=== PATIENT | male | born 1975 | race African-American/Black ===

== ENCOUNTER 2019-10-17 10:09 | Day surgery (SDC) | payer OTHER ==
[~2019-10-17] VITALS: Ht 185.4 cm; Wt 109.1 kg
--- NOTE | ~2019-10-17 | HP ---
PATIENT: ROSALINA SANDOVAL MEDICAL RECORD: [id number] ACCOUNT: [id number] LOCATION:BI : 71 ADMISSION DATE: 10/17/19 PCP: CORNELIO CHEEK MD HISTORY AND PHYSICAL EXAMINATION PRINCIPAL DIAGNOSIS: Guaiac positive stools. HISTORY OF PRESENT ILLNESS: The patient has had guaiac positive stools. I performed a colonoscopy on him in the past, which did not reveal a source of bleeding. He is to undergo an EGD today. He does have some diffuse upper abdominal pain, which radiates around to the right back. He is on omeprazole. He states that he has daily reflux. PAST MEDICAL AND SURGICAL HISTORY: He had some quarters removed from the stomach as a child. HOME MEDICINE: Omeprazole. ALLERGIES: No known drug allergies. REVIEW OF SYSTEMS: Negative for coronary artery disease, hypertension. Negative for CVA or seizures. PHYSICAL EXAMINATION: GENERAL: The patient does not appear acutely ill. He does not appear chronically ill. VITAL SIGNS: Reviewed. EARS: External ears appear normal. EYES: Extraocular movements are intact. NECK: Trachea is midline. CHEST: No intercostal retractions. PULMONARY: Nonlabored, no stridor. IMPRESSION: Heme-positive stools in the face of a negative colonoscopy. PLAN: Will be EGD. TRANSINT:[id number] Voice Confirmation ID: [id number] DOCUMENT ID: [id number] cc: JHONATAN Andrew MD CC: [id number] DICTATION DATE: 10/17/19 1121 TELEPHONE SERVICE REPRESENTATIVE: 10/17/19 [id number] [place] [address]
--- NOTE | ~2019-10-17 | OP ---
PATIENT NAME: ROSALINA SANDOVAL MEDICAL RECORD: [id number] :71 LOCATION:[facility] ADMISSION DATE: SURGEON: NATHAN STAHL MD DATE OF OPERATION: 10/17/2019 PREOPERATIVE DIAGNOSIS: Heme-positive stools. POSTOPERATIVE DIAGNOSES: Heme-positive stools, sliding hiatal hernia, also no upper tract source of bleeding. PROCEDURE: Esophagogastroduodenoscopy with antral biopsy. SURGEON: Nathan Stahl MD LABORATORY SAMPLER: None. BLOOD LOSS: Minimal. ANESTHESIA: IV sedation. COMPLICATIONS: None. The risks, possible complications and alternatives to the procedure were explained to the patient. He elects to proceed. ENDOSCOPIC COURSE: The patient was conveyed to the endoscopy suite electively on 10/17/2019. IV sedation was induced by the anesthesia staff. A bite block was inserted. A gastroscope was inserted into the mouth. It was advanced easily into the hypopharynx. The esophagus was easily intubated as were the stomach and duodenum. Upon withdrawal, retroflexed and angulus views were obtained. Antral biopsies were obtained to rule out H. pylori. I carefully inspected the esophagus, the stomach, and the duodenum. I noted no evidence of inflammation. The endoscope was then withdrawn under direct vision. The patient has been on a proton pump inhibitor. It is a possibility that the patient did have an upper tract source of bleeding such as peptic ulcer disease, gastritis or duodenitis and that this is improved on the omeprazole. If a repeat rectal exam reveals guaiac positive stools again, I would recommend repeating the colonoscopy. There is no need for the patient to follow up with me in the office unless he develops a complication related to this endoscopic procedure. TRANSINT:[id number] Voice Confirmation ID: [id number] DOCUMENT ID: [id number] cc: NATHAN Andrew MD CC: [id number] DICTATION DATE: 10/17/19 1212 MACHINE ERECTOR: 10/17/19 [address] [place] [address]
[2019-10-17] MEDS ORDERED: OMEPRAZOLE20 M1 PO (10:48)
[2019-10-17 10:54] VITALS: BP 132/82; Ht 185.4 cm; Wt 109.1 kg
--- NOTE | 2019-10-17 12:03 | NUR ---
1155-RECD TO ROOM FROM GI LAB. ALERT. IV PATENT. DENIES PAIN/NAUSEA. GAURDS X 2 AT BEDSIDE. TAKING SIPS OF CLEAR LIQUIDS WITHOUT NAUSEA.
--- NOTE | 2019-10-17 14:46 | NUR ---
1300 DRESSED, AWAKE, & ALERT. GIVEN DISCHARGE INFORMATION INCLUDING: MED REC, SHEET LISTING NSAIDS TO AVOID, & [facility] D/C INSTRUCTIONS. PT VOICED UNDERSTANDING. RELEASED FROM UNIT VIA WHEELCHAIR WITH ADC GUARDS X'S Edy SONG R.N.
== END 2019-10-17 13:00 ==
LOC: D.OPS 10:09 → EDBD 10:09 → D.OPS 13:00
PROVIDERS: ATTEND Surgery
DX: R19.5 Other fecal abnormalities (principal); K44.9 Diaphragmatic hernia without obstruction or gangrene